=== PATIENT | male | born 1960 | race Caucasian/White ===

== ENCOUNTER 2017-02-25 10:30 | Day surgery (SDC) | payer BC ==
--- NOTE | 2017-02-12 07:22 | HP ---
CC: Attila Merida MD * ADMISSION HISTORY AND PHYSICAL: DATE OF ADMISSION: 02/25/17 ATTENDING SURGEON: Keo Orantes MD * (DICTATED BY AMI BARRIOS) CHIEF COMPLAINT: Left inguinal hernia. HISTORY OF PRESENT ILLNESS: This is a 56-year-old male with past history of coronary artery disease who has a greater than 10-year history of a left inguinal hernia. He apparently had a repair of left inguinal hernia as an infant. For most of the past 10 years, the hernia has only been intermittently symptomatic with occasional bulge with minor discomfort, sometimes requiring manual reduction. In the past 2 years, he has had more consistent herniation present whenever he is up and active, though he denies any actual pain related to the hernia. Again, he will occasionally manually reduce the hernia. He has noticed possibly some increased urinary urgency, but no other changes. He was seen in the office by Dr. Orantes on 08/26/16, at which time exam confirmed the presence of a large, reducible, mildly tender left inguinal hernia. He was seen for cardiology evaluation by Dr. Reyes. That evaluation was unrevealing for any significant active cardiac disease (see attached). The patient understands the indications for surgery, the risks, benefits, and alternatives and would like to proceed as scheduled with laparoscopic repair left inguinal hernia with mesh. PAST MEDICAL HISTORY: Coronary artery disease (status post three-vessel CABG with vein grafts in 2013). He is also treated for hypertension and allergic rhinitis. He has a history of hyperlipidemia, but does not tolerate statins. PAST SURGICAL HISTORY: Includes: 1. Coronary bypass as above. 2. ORIF of foot fractures. 3. 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 4. Right knee arthroscopy. No reported surgical or anesthesia complications. CURRENT MEDICATIONS: 1. Metoprolol 25 mg b.i.d. 2. Aspirin 81 mg daily (he will continue preoperatively). 3. Nasonex 1 spray each nostril daily p.r.n. 4. Probiotic once daily, but multivitamin once daily. 5. Triamcinolone ointment 0.1% p.r.n. for rash. DRUG ALLERGIES: ATORVASTATIN (elevated CPK and other side effects). FAMILY HISTORY: Noncontributory in terms of anesthesia problems, bleeding or clotting disorders. SOCIAL HISTORY: The patient is . He works as a landlord and apartment property manager. He was a former smoker of approximately 1 pack per week for 25 years, he quit in 2013. Alcohol intake was typically a couple of glasses of wine per day, though he has gradually tapered that and in the past week has had no alcohol. He denies other recreational drug use. REVIEW OF SYSTEMS: General: No recent constitutional symptoms or acute illnesses. Skin/Integument: He has had rash on the extensor surfaces of both forearms and his upper chest and the abdomen, which he attributes to interaction between metoprolol and alcohol. It is pruritic. He is scheduled to be seen by Dermatology in the near future. Cardiovascular: He was seen and worked up by Cardiology (see attached by Dr. Reyes). Respiratory: No history of chronic cough, shortness of breath, or asthma. GI: No significant symptoms. He did undergo colonoscopy within the past 5 years, reportedly normal. : No problems reported. Endocrine: No diabetes or thyroid dysfunction. PHYSICAL EXAMINATION GENERAL: Well-nourished, well-developed male, in no acute distress. VITAL SIGNS: Height 66 inches, weight 189 pounds. Blood pressure 140/78, pulse 60, respirations 16. HEENT: Pupils are equal, round, and reactive. EOMs intact. No conjunctival pallor. Oropharynx: Teeth in good repair. No intraoral lesions. NECK: No lymphadenopathy, thyromegaly, or masses. LUNGS: Clear to auscultation. No rales or wheezes. HEART: Regular rate and rhythm. No murmur appreciated. ABDOMEN: Soft, nontender to palpation. No palpable masses or organomegaly other than the aforementioned left inguinal hernia per Dr. Orantes' exam. SKIN: Warm and dry. No suspicious rashes or lesions noted. He does have a somewhat papular rash over the proximal extensor surfaces of both forearms. Complete skin survey was not performed. GENITALIA: Not examined. RECTAL: Not examined. BACK: No spinous process or CVA tenderness. EXTREMITIES: No edema. NEUROLOGICAL: Grossly intact. IMPRESSION: Left inguinal hernia. PLAN: Laparoscopic repair of left inguinal hernia with mesh. AMI BARRIOS [id number]/[facility] #: [id number] RADAMES
[~2017-02-25 10:30] MED LIST: Buffered Lidocaine 0.9% SYRIN* 5 ML/SYR SYRINGE INTRADERM ONE; DiMENhydriNATE IV* 50 MG/ML VIAL IV PUSH PRN; Famotidine IV* 10 MG/ML 2 ML (20 mg) IV ONE; Morphine INJ* 2 MG/ML 1 ML CARPUJECT IV PRN; PROCHLORPERAZINE INJ 5 MG/ML 2 ML VIAL IV PRN; Scopolamine 1.5 mg* PATCH TRANSDERM PRN; fentaNYL* 50 MCG/ML 2 ML VIAL (100 MCG VIAL) IV PRN; oxyCODONE/Acetamin 5/325 MG* TAB PO PRN
[2017-02-25] MEDS ORDERED: Famotidine IV* 10 MG/ML 2 ML (20 mg) ONE (10:37)
[2017-02-25] MEDS ORDERED: Buffered Lidocaine 0.9% SYRIN* 5 ML/SYR SYRINGE ONE (10:37)
[2017-02-25] MEDS ORDERED: ceFAZolin 2 GM PREMIX (*) 2 GM/50 ML BAG IVPB ONE (10:38)
[2017-02-25] MEDS ORDERED: Midazolam* 1 MG/ML 5 ML VIAL (5 MG) ONE (11:05)
[2017-02-25] MEDS ORDERED: fentaNYL* 50 MCG/ML 2 ML VIAL (100 MCG VIAL) ONE (11:05)
[2017-02-25] MEDS ORDERED: KETAMINE HCL* 50 MG/ML 10 ML VIAL ONE (11:05)
[2017-02-25] MEDS ORDERED: Bupivacaine 0.25% SDV* 30 ML ONE (11:51)
[2017-02-25] MEDS ORDERED: Glycopyrrolate IV* 0.2 MG/ML 1 ML VIAL ONE (12:25)
[2017-02-25] MEDS ORDERED: Ondansetron INJ* 2 MG/ML VIAL ONE (12:25)
[2017-02-25] MEDS ORDERED: Neostigmine Methylsulfate* 2 MG/2 ML SYRINGE ONE (12:25)
[2017-02-25] MEDS ORDERED: Propofol* 10 MG/ML 20 ML BTL IV PUSH ONE (12:25)
[2017-02-25] MEDS ORDERED: Dexamethasone IV* 4 MG/ML 1 ML (4 MG) ONE (12:25)
[2017-02-25] MEDS ORDERED: Ketorolac INJ* 30 MG/ML 1 ML VIAL ONE (12:25)
[2017-02-25] MEDS ORDERED: Lidocaine 2% PF* 10 ML AMP ONE (12:33)
[2017-02-25] MEDS ORDERED: hydrALAZINE IV* 20 MG/ML VIAL ONE (12:42)
[2017-02-25] MEDS ORDERED: Morphine INJ* 10 MG/ML 1 ML CARPUJECT ONE (13:25)
[2017-02-25] MEDS ORDERED: oxyCODONE/Acetamin 5/325 MG* TAB PO PRN (14:02)
[2017-02-25 18:33] VITALS: BP 136/75
--- NOTE | 2017-02-25 19:57 | SURGPN ---
Brief Operative Note - Surgery Procedures: PRE/POST OP DX: LEFT INGUINAL HERNIA PROC: LAP LIHR WITH MESH SURG: MECENAS ASSIST: MILO KWANS: GET; FELLOWS EBL: MIN IVF: CRYSTALLOID SPEC: NONE DRAIN: NONE COMPL: NONE COND: STABLE TO RR; EXTUBATED. FINDINGS: LARGE INDIRECT LIH.
--- NOTE | 2017-02-26 04:54 | OP ---
CC: Attila Merida MD* OPERATIVE REPORT: DATE OF OPERATION: 02/25/17 - SDS DATE OF : 58 SURGEON: Dr. Orantes. MOTORBIKE COURIER: AMI Kinsey ANESTHESIOLOGIST: Karan Diaz MD ANESTHESIA: General endotracheal. PRE-OP DIAGNOSIS: Left inguinal hernia. POST-OP DIAGNOSIS: Left inguinal hernia. OPERATIVE PROCEDURE: Laparoscopic preperitoneal left inguinal hernia with mesh. ESTIMATED BLOOD LOSS: Minimal. IV FLUIDS: Crystalloids. SPECIMENS: None. DRAINS: None. COMPLICATIONS: None. COUNTS: Instrument, needle, and sponge counts were correct. DESCRIPTION OF PROCEDURE: The patient was brought to the operating room and placed on the table supine. Sequential compression devices were placed on both lower extremities. General anesthesia was administered. Chacon catheter was placed. The patient was positioned and padded appropriately and then a time- out was performed. Local anesthetic was infiltrated into the skin and soft tissue prior to making each incision. A curvilinear infraumbilical incision was created and the subcutaneous tissues were divided and then the anterior rectus abdominus sheath was identified to the left of midline and incised transversely. The underlying rectus muscles were retracted laterally and a preperitoneal balloon dissector was placed down to the pubic symphysis. This was insufflated under direct visualization and then the balloon dissector removed and a 12-mm blunt port was placed. Carbon dioxide was then insufflated to a pressure of 10 mmHg and under direct visualization, two 5 mm trocars were placed in the midline inferior to the umbilicus. Dissection proceeded from the midline laterally, identifying the pubic symphysis, the Oli's ligament and the inferior epigastric vessels which were maintained anteriorly. There was a very large indirect inguinal hernia sac. The cord structures were free from the sac. The sac was ultimately rolled up on itself and then it was divided and ligated proximally with the Endoloop in order to complete the dissection. The repair was then performed with a Bard 3D-Max mesh placing this into the preperitoneal space and positioning it to cover the direct, indirect, and femoral spaces. The mesh extended laterally through the area of the anterior superior iliac spine. The mesh was secured with the CapSure tacker to the pubic tubercle, to Oli's ligament, and to the anterior abdominal wall musculature. The space was allowed to desufflate under direct visualization, ensuring the mesh was in proper position. Next, the port at the umbilical site was removed and it was repositioned intraperitoneally, so a peritoneoscopy could be performed and this confirmed that there was no exposure of the mesh. The carbon dioxide was released. The ports were removed. The wounds were closed with 4-0 Monocryl in the subcuticular fascia and Steri-Strips were applied. The patient tolerated the procedure well, was extubated, and transferred to Recovery in stable condition. [id number]/[facility] #: [id number] [facility]
[2017-02-28] MEDS ORDERED: Scopolomine PATCH Remove* 1 NOTE MISC PATCH OFF ONE (06:47)
== END 2017-02-25 15:05 | disposition home or self-care (01) ==
LOC: OR 10:30
PROVIDERS: ATTEND Surgery
DX: K40.90 Unilateral inguinal hernia, without obstruction or gangrene, not specified as recurrent (principal); I25.10 Atherosclerotic heart disease of native coronary artery without angina pectoris; I10 Essential (primary) hypertension; J30.9 Allergic rhinitis, unspecified; Z79.82 Long term (current) use of aspirin; Z88.8 Allergy status to other drugs, medicaments and biological substances; Z95.1 Presence of aortocoronary bypass graft; Z87.891 Personal history of nicotine dependence
CPT/HCPCS: C1776; C1781; J0360; J0690; J1100; J1885; J2001; J2250; J2270; J2405; J2704; J3010

== ENCOUNTER 2022-05-31 10:36 | Inpatient (IN) ==
[2022-05-31 13:03] LABS: ABS Lymphocytes 1.1 10^3/ul (1.0-4.8); ABS Monocytes 0.7 10^3/ul (0-0.8); ABS Neutrophils 8.3 10^3/ul (1.5-7.7); Eosinophil % 0.3 %; Hematocrit 38 % (42-52); Lymphocyte % 10.4 %; Mean Corpuscular HGB Conc 31 g/dL (31-36); Mean Corpuscular Hemoglobin 24 pg (27-31); Mean Corpuscular Volume 77 fL (80-94); Mean Platelet Volume 7.1 fL (7.4-10.4); Platelet Count 339 10^3/uL (150-450); Red Blood Count 4.97 10^6 /uL (4.18-5.48); Red Cell Distribution Width 16 % (10-15); White Blood Count 10.1 10^3/uL (3.5-10.8)
[2022-05-31 13:15] LABS: INR 1.42 (0.88-1.18)
[2022-05-31 13:26] LABS: High Sens Troponin Baseline 6 pg/mL (<20)
[2022-05-31] MEDS ORDERED: NS 0.9% 1000 ml BAG 1,000 ML IV ONE (13:27)
[2022-05-31 13:28] LABS: ALT 23 U/L (7-52); AST 18 U/L (13-39); Albumin 4.2 g/dL (3.2-5.2); Albumin/Globulin Ratio 1.8 (1-3); Alkaline Phosphatase 72 U/L (35-149); Anion Gap 4 mmol/L (2-11); Blood Urea Nitrogen 11 mg/dL (6-24); C Reactive Protein 4.25 mg/L (<8.01); CO2 Carbon Dioxide 27 mmol/L (22-32); Calcium 9.5 mg/dL (8.6-10.3); Chloride 101 mmol/L (101-111); Creatinine, Serum 0.71 mg/dL (0.67-1.17); Globulin 2.4 g/dL (2-4); Glucose 107 mg/dL (70-100); Potassium 4.8 mmol/L (3.5-5.0); Sodium 132 mmol/L (135-145); Total Protein 6.6 g/dL (6.4-8.9); eGFR CKD-EPI 103.1 (>60)
[2022-05-31 13:51] LABS: Lipase 710 U/L (11.0-82.0)
[2022-05-31 14:15] LABS: Urine Appearance Clear; Urine Bilirubin Negative (Negative); Urine Blood Negative (Negative); Urine Color Yellow; Urine Glucose Negative (Negative); Urine Ketones Negative (Negative); Urine Nitrite Negative (Negative); Urine Protein Negative (Negative); Urine Specific Gravity 1.017 (1.002-1.030); Urine Urobilinogen Negative (Negative)
[2022-05-31] MEDS ORDERED: Iohexol 350 (CONTRAST) 500 ML MDV IV ONE (14:23)
[2022-05-31 14:38] LABS: High Sensitivity Troponin 1 Hr 6 pg/mL (<20)
[2022-05-31] MEDS ORDERED: Ondansetron 4 mg VIAL 2 MG/ML 2 ml VIAL IV ONE (14:39)
[2022-05-31] MEDS ORDERED: Morphine 4 MG/ML VIAL (1 ml) IV ONE (14:39)
[2022-05-31] MEDS ORDERED: Acetaminophen IV 1 GM/100ML 1,000 MG/100 ML BAG IV PRN (16:39)
[2022-05-31] MEDS ORDERED: Ondansetron 4 mg VIAL 2 MG/ML 2 ml VIAL IV PRN (16:40)
[2022-05-31] MEDS: NS 0.9% 1000 ml BAG 1,000 ML IV SCH (17:14)
[2022-05-31 17:23] LABS: Cholesterol 150 mg/dL; HDL Cholesterol 38.9 mg/dL; LDL Cholesterol 102 mg/dL; Triglycerides 47 mg/dL
[2022-05-31] MEDS: Enoxaparin 40 MG/0.4 ML SYR SUBCUT SCH (17:39)
[2022-05-31] MEDS ORDERED: Thiamine 100 MG/ML 2 ml VIAL (200 mg) IM ONE (17:41)
[2022-05-31] MEDS: Multivitamins/Minerals TAB PO SCH (18:24)
[2022-05-31] MEDS ORDERED: Senna TAB 8.6 mg TAB PO PRN (18:41)
[2022-05-31] MEDS ORDERED: Magnesium Hydroxide LIQ 30 ML UDC PO PRN (18:41)
[2022-05-31 19:35] LABS: Alcohol, S < 13 mg/dL (<13)
[2022-06-01] MEDS: NS 0.9% 1000 ml BAG 1,000 ML IV SCH (00:41)
[2022-06-01] MEDS: Morphine 2 MG/ML SYRINGE IV PRN ×4 (06:09→21:00)
[2022-06-01 06:16] LABS: ABS Eosinophils 0.1 10^3/ul (0-0.6); ABS Lymphocytes 1.4 10^3/ul (1.0-4.8); ABS Monocytes 1.4 10^3/ul (0-0.8); ABS Neutrophils 9.1 10^3/ul (1.5-7.7); Eosinophil % 0.8 %; Hematocrit 36 % (42-52); Hemoglobin 11.3 g/dL (14.0-18.0); Lymphocyte % 11.6 %; Mean Corpuscular HGB Conc 32 g/dL (31-36); Mean Corpuscular Hemoglobin 24 pg (27-31); Mean Corpuscular Volume 78 fL (80-94); Mean Platelet Volume 7.2 fL (7.4-10.4); Platelet Count 315 10^3/uL (150-450); Red Blood Count 4.62 10^6 /uL (4.18-5.48); Red Cell Distribution Width 16 % (10-15)
[2022-06-01 06:46] LABS: ALT 19 U/L (7-52); AST 17 U/L (13-39); Albumin 3.7 g/dL (3.2-5.2); Albumin/Globulin Ratio 1.6 (1-3); Alkaline Phosphatase 73 U/L (35-149); Anion Gap 5 mmol/L (2-11); Blood Urea Nitrogen 7 mg/dL (6-24); CO2 Carbon Dioxide 26 mmol/L (22-32); Calcium 8.7 mg/dL (8.6-10.3); Chloride 103 mmol/L (101-111); Creatinine, Serum 0.88 mg/dL (0.67-1.17); Globulin 2.3 g/dL (2-4); Glucose 120 mg/dL (70-100); Potassium 4.7 mmol/L (3.5-5.0); Sodium 134 mmol/L (135-145); Total Iron Binding Capacity 505 mcg/dL (250-450); Transferrin 361 mg/dL (203-362); eGFR CKD-EPI 96.6 (>60)
[2022-06-01 06:49] LABS: % Iron Saturation 4 % (15-55); Iron < 20 ug/dL (50-212); Unsaturated Iron Binding 485 ug/dL
[2022-06-01 07:04] LABS: Ferritin 9.5 ng/mL (24-336)
[2022-06-01] MEDS: Multivitamins/Minerals TAB PO SCH (08:20)
[2022-06-01] MEDS: Ferric Gluconate IV 125 MG in NS 0.9% 100 ml BAG 100 ML IVPB SCH (11:42)
[2022-06-01] MEDS ORDERED: NS 0.9% 1000 ml BAG 1,000 ML IV SCH (16:30)
[2022-06-01] MEDS: Enoxaparin 40 MG/0.4 ML SYR SUBCUT SCH (17:34)
[2022-06-02 06:00] LABS: Hematocrit 35 % (42-52); Hemoglobin 11.2 g/dL (14.0-18.0); Mean Corpuscular HGB Conc 32 g/dL (31-36); Mean Corpuscular Hemoglobin 24 pg (27-31); Mean Corpuscular Volume 77 fL (80-94); Mean Platelet Volume 7.4 fL (7.4-10.4); Platelet Count 323 10^3/uL (150-450); Red Blood Count 4.58 10^6 /uL (4.18-5.48); Red Cell Distribution Width 16 % (10-15); White Blood Count 17.1 10^3/uL (3.5-10.8)
[2022-06-02 06:07] LABS: ABS Monocytes 1.7 10^3/ul (0-0.8); ABS Neutrophils 14.4 10^3/ul (1.5-7.7); Eosinophil % 0.1 %; Lymphocyte % 5.7 %
[2022-06-02 06:16] LABS: Albumin 3.7 g/dL (3.2-5.2); Albumin/Globulin Ratio 1.5 (1-3); Calcium 8.7 mg/dL (8.6-10.3); Creatinine, Serum 0.67 mg/dL (0.67-1.17); Globulin 2.5 g/dL (2-4); Magnesium 1.7 mg/dL (1.9-2.7); Total Protein 6.2 g/dL (6.4-8.9); eGFR CKD-EPI 104.9 (>60)
[2022-06-02] MEDS ORDERED: NS 0.9% 1000 ml BAG 1,000 ML IV ONE (08:04)
[2022-06-02] MEDS ORDERED: Magnesium Sulf 4 GM/100 ML IV 4,000 MG/100 ML BAG IVPB ONE (09:00)
[2022-06-02] MEDS: Ferric Gluconate IV 125 MG in NS 0.9% 100 ml BAG 100 ML IVPB SCH (10:44)
[2022-06-02] MEDS: Multivitamins/Minerals TAB PO SCH (10:50)
[2022-06-02] MEDS: Enoxaparin 40 MG/0.4 ML SYR SUBCUT SCH (17:54)
[2022-06-03] MEDS: Morphine 2 MG/ML SYRINGE IV PRN (06:26)
[2022-06-03 06:27] LABS: ABS Eosinophils 0.1 10^3/ul (0-0.6); ABS Lymphocytes 0.9 10^3/ul (1.0-4.8); ABS Monocytes 1.1 10^3/ul (0-0.8); ABS Neutrophils 11.2 10^3/ul (1.5-7.7); Eosinophil % 0.9 %; Hematocrit 36 % (42-52); Hemoglobin 11.2 g/dL (14.0-18.0); Lymphocyte % 6.5 %; Mean Corpuscular HGB Conc 31 g/dL (31-36); Mean Corpuscular Hemoglobin 24 pg (27-31); Mean Corpuscular Volume 76 fL (80-94); Mean Platelet Volume 7.5 fL (7.4-10.4); Platelet Count 347 10^3/uL (150-450); Red Blood Count 4.68 10^6 /uL (4.18-5.48); Red Cell Distribution Width 16 % (10-15); White Blood Count 13.3 10^3/uL (3.5-10.8)
[2022-06-03 07:00] LABS: Calcium 8.5 mg/dL (8.6-10.3); Creatinine, Serum 0.67 mg/dL (0.67-1.17); Magnesium 2.2 mg/dL (1.9-2.7); Potassium 4.2 mmol/L (3.5-5.0); eGFR CKD-EPI 104.9 (>60)
[2022-06-03] MEDS ORDERED: ceFAZolin 2 GM PREMIX 2 GM/50 ML BAG IVPB ONE (07:00)
[2022-06-03] MEDS ORDERED: Lactated Ringers 1000 ml BAG 1,000 ML IV ONE (07:33)
[2022-06-03] MEDS ORDERED: Ferric Gluconate IV 250 MG in NS 0.9% 100 ml BAG 100 ML IVPB SCH (09:00)
[2022-06-03] MEDS: Multivitamins/Minerals TAB PO SCH (09:09)
[2022-06-03] MEDS ORDERED: fentaNYL 100 mcg/2 ml 50 MCG/ML VIAL ONE ×2 (10:05→13:27)
[2022-06-03] MEDS ORDERED: Lidocaine 2% PF 5 ML VIAL ONE (10:05)
[2022-06-03] MEDS ORDERED: Propofol 10 MG/ML 20 ML BTL ONE (10:05)
[2022-06-03] MEDS ORDERED: Rocuronium 50 mg VIAL 10 mg/ml 5 ml VIAL (50 mg) ONE ×2 (10:07→13:54)
[2022-06-03] MEDS ORDERED: Midazolam 2 mg/2 ml VIAL 1 mg/ml 2 ml VIAL (2 mg) ONE (10:07)
[2022-06-03] MEDS ORDERED: ceFAZolin 2 GM in NS PREMIX 2 GM/100 ML BAG IVPB ONE (10:56)
[2022-06-03] MEDS ORDERED: Iohexol 180 (CONTRAST) 20 ML SDV IV ONE (12:15)
[2022-06-03] MEDS ORDERED: Buffered Lidocaine 1% SYRIN 1 ml INTRADERM ONE (12:21)
[2022-06-03] MEDS ORDERED: ceFAZolin VIAL VIAL ONE (12:56)
[2022-06-03] MEDS ORDERED: Dexamethasone IV 4 MG/ML VIAL 1 ml VIAL ONE (13:24)
[2022-06-03] MEDS ORDERED: Ondansetron 4 mg VIAL 2 MG/ML 2 ml VIAL ONE (13:24)
[2022-06-03] MEDS ORDERED: Acetaminophen IV 1 GM/100ML 1,000 MG/100 ML BAG IV ONE (13:24)
[2022-06-03] MEDS ORDERED: Iohexol 180 (CONTRAST) 10 ML SDV IV ONE (13:49)
[2022-06-03] MEDS ORDERED: Sugammadex 500 MG/5 ML 5 ml VIAL IV PUSH ONE (14:04)
[2022-06-03] MEDS ORDERED: Naloxone 0.4 mg VIAL 0.4 mg/ml 1 ml VIAL IV PRN (14:25)
[2022-06-03] MEDS ORDERED: fentaNYL 100 mcg/2 ml 50 MCG/ML VIAL IV PRN (14:25)
[2022-06-03] MEDS ORDERED: HYDROmorphone 1 MG/1 ML SYRINGE IV PRN (14:25)
[2022-06-03 16:22] VITALS: BP 166/93
[2022-06-03] MEDS ORDERED: Senna TAB 8.6 mg TAB PO SCH (21:00)
== END 2022-06-03 16:22 | disposition short-term general hospital (02) | DRG 263 ==
LOC: EDHOLD 10:36 → ED 10:36 → SUATTDRO 16:35 → MEDTELE 18:44
PROVIDERS: ADMIT Hospitalist; ATTEND Family Medicine

== ENCOUNTER 2023-05-06 06:01 | Observation (INO) ==
[~2023-05-06 06:01] MED LIST changes: -Buffered Lidocaine 0.9% SYRIN* 5 ML/SYR SYRINGE INTRADERM ONE; +Buffered Lidocaine 1% SYRIN 1 ml INTRADERM ONE; -DiMENhydriNATE IV* 50 MG/ML VIAL IV PUSH PRN; +Famotidine IV 10 MG/ML 2 ml VIAL (20 mg) IV ONE; -Famotidine IV* 10 MG/ML 2 ML (20 mg) IV ONE; +Lactated Ringers 1000 ml BAG 1,000 ML IV SCH; -Morphine INJ* 2 MG/ML 1 ML CARPUJECT IV PRN; -PROCHLORPERAZINE INJ 5 MG/ML 2 ML VIAL IV PRN; -Scopolamine 1.5 mg* PATCH TRANSDERM PRN; -fentaNYL* 50 MCG/ML 2 ML VIAL (100 MCG VIAL) IV PRN; -oxyCODONE/Acetamin 5/325 MG* TAB PO PRN
[2023-05-06] MEDS ORDERED: ceFAZolin 2 GM in NS PREMIX 2 GM/100 ML BAG IVPB ONE (06:26)
[2023-05-06] MEDS ORDERED: Famotidine IV 10 MG/ML 2 ml VIAL (20 mg) ONE (06:26)
[2023-05-06] MEDS ORDERED: Glycopyrrolate IV 0.2 MG/ML 1 ML VIAL ONE (07:09)
[2023-05-06] MEDS ORDERED: Ondansetron 4 mg VIAL 2 MG/ML 2 ml VIAL ONE (07:09)
[2023-05-06] MEDS ORDERED: fentaNYL 100 mcg/2 ml 50 MCG/ML VIAL ONE ×3 (07:09→10:13)
[2023-05-06] MEDS ORDERED: Propofol 10 MG/ML 20 ML BTL ONE (07:09)
[2023-05-06] MEDS ORDERED: Lidocaine 2% PF 5 ML VIAL ONE (07:09)
[2023-05-06] MEDS ORDERED: HYDROmorphone 0.5 MG/0.5 ML SYRINGE ONE (07:09)
[2023-05-06] MEDS ORDERED: Dexamethasone IV 4 MG/ML VIAL 1 ml VIAL ONE (07:09)
[2023-05-06] MEDS ORDERED: Bupivacaine 0.5% SDV PF 30ML VIAL ONE (07:10)
[2023-05-06] MEDS ORDERED: Lidocaine 1% w EPI 1:100,000 MDV 20 ML VIAL ONE (07:10)
[2023-05-06] MEDS ORDERED: Rocuronium 50 mg VIAL 10 mg/ml 5 ml VIAL (50 mg) ONE ×2 (07:11→08:01)
[2023-05-06] MEDS ORDERED: Succinylcholine 200 mg VIAL 20 mg/ml 10 ml VIAL (200 mg) ONE (07:26)
[2023-05-06] MEDS ORDERED: HYDROmorphone 1 MG/1 ML SYRINGE IV PRN (07:27)
[2023-05-06] MEDS ORDERED: Naloxone 0.4 mg VIAL 0.4 mg/ml 1 ml VIAL IV PRN (07:27)
[2023-05-06] MEDS ORDERED: fentaNYL 100 mcg/2 ml 50 MCG/ML VIAL IV PRN (07:27)
[2023-05-06] MEDS ORDERED: Ondansetron 4 mg VIAL 2 MG/ML 2 ml VIAL IV PRN ×2 (07:27→10:46)
[2023-05-06] MEDS ORDERED: Labetalol IV 5 MG/ML 20 ml VIAL ONE (08:33)
[2023-05-06] MEDS ORDERED: HYDROmorphone 0.5 MG/0.5 ML SYRINGE IV SLOW PU PRN (10:53)
[2023-05-06] MEDS ORDERED: HYDROmorphone 1 MG/1 ML SYRINGE IV SLOW PU PRN (10:54)
[2023-05-06] MEDS: Acetaminophen IV 1 GM/100ML 1,000 MG/100 ML BAG IV SCH ×2 (13:03→20:32)
[2023-05-07] MEDS: Acetaminophen IV 1 GM/100ML 1,000 MG/100 ML BAG IV SCH ×2 (01:27→07:37)
[2023-05-07 06:59] LABS: Hematocrit 44.7 % (38-53); Hemoglobin 14.9 g/dL (13.2-16.3); Mean Corpuscular Hemoglobin 28.9 pg (27-33); Mean Corpuscular Hgb Conc 33.4 g/dL (31-36); Mean Corpuscular Volume 86.6 fL (80-97); Mean Platelet Volume 7.5 fL (7.5-11.2); Platelet Count 217 10^3/uL (150-450); Red Blood Count 5.17 10^6/uL (4.06-5.63); Red Cell Distribution Width 22.9 % (12-17); White Blood Count 10.5 10^3/uL (3.6-10.2)
[2023-05-07 07:17] LABS: Calcium 8.9 mg/dL (8.6-10.3); Creatinine, Serum 1.01 mg/dL (0.67-1.17); Potassium 4.7 mmol/L (3.5-5.0)
[2023-05-07 07:39] LABS: ABS Lymphocytes 1.3 10^3/uL (1.0-4.8); ABS Monocytes 0.8 10^3/uL (0.0-1.1); ABS Neutrophils 8.3 10^3/uL (1.5-7.6); ABS Nucleated RBC 0.01 10^3/ul; Eosinophil % 0.1 %; Lymphocyte % 12.4 %; Nucleated Red Blood Cells % 0.1 %/100WBC (0.0-0.8)
[2023-05-07] MEDS ORDERED: Enoxaparin 40 MG/0.4 ML SYR SUBCUT SCH (09:00)
[2023-05-07] MEDS ORDERED: Pantoprazole VIAL 40 MG VIAL IV SCH (09:00)
[2023-05-07 10:22] VITALS: BP 152/75
== END 2023-05-07 12:00 | disposition home or self-care (01) ==
LOC: OR 06:01 → INTOOBSV 12:16 → SSU 12:16
PROVIDERS: ADMIT Surgery; ATTEND Surgery

== ENCOUNTER 2023-05-24 01:21 | Observation (INO) ==
[2023-05-24 02:48] LABS: ABS Eosinophils 0.2 10^3/uL (0.0-0.5); ABS Monocytes 0.7 10^3/uL (0.0-1.1); ABS Nucleated RBC 0.01 10^3/ul; Eosinophil % 2.4 %; Hematocrit 46.2 % (38-53); Hemoglobin 15.7 g/dL (13.2-16.3); Lymphocyte % 14.8 %; Mean Corpuscular Hemoglobin 29.6 pg (27-33); Mean Corpuscular Hgb Conc 33.9 g/dL (31-36); Mean Corpuscular Volume 87.4 fL (80-97); Mean Platelet Volume 7.1 fL (7.5-11.2); Nucleated Red Blood Cells % 0.1 %/100WBC (0.0-0.8); Platelet Count 326 10^3/uL (150-450); Red Blood Count 5.29 10^6/uL (4.06-5.63); Red Cell Distribution Width 18.6 % (12-17); White Blood Count 6.9 10^3/uL (3.6-10.2)
[2023-05-24 03:06] LABS: ALT 31 U/L (7-52); AST 20 U/L (13-39); Albumin 4.2 g/dL (3.2-5.2); Albumin/Globulin Ratio 1.4 (1-3); Alkaline Phosphatase 68 U/L (35-149); Anion Gap 6 mmol/L (2-16); Blood Urea Nitrogen 16 mg/dL (6-24); C Reactive Protein 2.23 mg/L (<8.01); CO2 Carbon Dioxide 25 mmol/L (22-32); Calcium 9.5 mg/dL (8.6-10.3); Chloride 101 mmol/L (101-111); Creatinine, Serum 0.93 mg/dL (0.67-1.17); Glucose 134 mg/dL (70-100); Lipase < 10 U/L (11.0-82.0); Potassium 4.8 mmol/L (3.5-5.0); Sodium 132 mmol/L (135-145); Total Bilirubin 0.4 mg/dL (0.2-1.0); Total Protein 7.2 g/dL (6.4-8.9); eGFR CKD-EPI 91.7 (>60)
[2023-05-24 06:17] LABS: Urine Appearance Clear; Urine Bilirubin Negative (Negative); Urine Blood Negative (Negative); Urine Color Yellow; Urine Glucose Negative (Negative); Urine Ketones Negative (Negative); Urine Nitrite Negative (Negative); Urine Protein Negative (Negative); Urine Specific Gravity 1.012 (1.002-1.030); Urine Urobilinogen Negative (Negative)
[2023-05-24] MEDS ORDERED: fentaNYL 100 mcg/2 ml 50 MCG/ML VIAL ONE (07:05)
[2023-05-24] MEDS ORDERED: Midazolam 10 mg/10 ml VIAL 1 mg/ml 10 ml VIAL (10 mg) ONE (07:05)
[2023-05-24] MEDS ORDERED: Iohexol 350 (CONTRAST) 500 ML MDV IV ONE (08:51)
[2023-05-24] MEDS ORDERED: Ondansetron 4 mg VIAL 2 MG/ML 2 ml VIAL IV PRN ×2 (09:56→14:51)
[2023-05-24] MEDS ORDERED: HYDROmorphone 1 MG/1 ML SYRINGE IV SLOW PU PRN ×2 (09:56→14:25)
[2023-05-24] MEDS: Lactated Ringers 1000 ml BAG 1,000 ML IV SCH ×3 (10:51→23:57)
[2023-05-24 11:05] LABS: Rapid COVID-19 Molecular Undetected (Undetected)
[2023-05-24 11:39] LABS: Influenza A Molecular Negative (Negative); Influenza B Molecular Negative (Negative)
[2023-05-24] MEDS ORDERED: Dexamethasone IV 4 MG/ML VIAL 1 ml VIAL ONE (11:48)
[2023-05-24] MEDS ORDERED: Propofol 10 MG/ML 20 ML BTL ONE (11:48)
[2023-05-24] MEDS ORDERED: Ondansetron 4 mg VIAL 2 MG/ML 2 ml VIAL ONE (11:48)
[2023-05-24] MEDS ORDERED: Lidocaine 2% PF 5 ML VIAL ONE (11:48)
[2023-05-24] MEDS ORDERED: Dexmedetomidine 200 mcg/2 ml 2 ml VIAL (200 mcg) ONE (11:49)
[2023-05-24] MEDS ORDERED: Rocuronium 50 mg VIAL 10 mg/ml 5 ml VIAL (50 mg) ONE (11:49)
[2023-05-24] MEDS ORDERED: Propofol 10 mg/ml 100 ML BTL 1,000 MG/100 ML BTL ONE (11:50)
[2023-05-24] MEDS ORDERED: ceFAZolin 2 GM/50 ML BAG IV ONE (13:00)
[2023-05-24] MEDS ORDERED: Acetaminophen IV 1 GM/100ML 1,000 MG/100 ML BAG IV ONE (13:00)
[2023-05-24] MEDS ORDERED: HYDROmorphone 0.5 MG/0.5 ML SYRINGE ONE (14:11)
[2023-05-24] MEDS ORDERED: HYDROmorphone 1 MG/1 ML SYRINGE IV PRN (14:51)
[2023-05-24] MEDS ORDERED: Naloxone 0.4 mg VIAL 0.4 mg/ml 1 ml VIAL IV PRN (14:51)
[2023-05-24] MEDS ORDERED: oxyCODONE 5 mg/5 ml ORAL.SOLN UDC PO PRN (18:31)
[2023-05-25 06:20] VITALS: BP 157/77
== END 2023-05-25 11:05 | disposition home or self-care (01) ==
LOC: EDHOLD 01:21 → ED 01:21 → AA 11:53 → SSU 15:42
PROVIDERS: ADMIT Surgery; ATTEND Surgery